=== PATIENT | male | born 1965 | race Caucasian/White ===

== ENCOUNTER → 2017-01-15 | Outpatient (CLI) | payer OTHER ==
[2017-01-15 07:22] LABS: BLOOD UREA NITROGEN 20 mg/dL (7-22); BUN/CREATININE RATIO 22.22 (6-20); CALCIUM 9.2 mg/dL (8.7-10.7); CHOL/HDL RATIO 4.16 RATIO (0-4.0); EST GLOMERULAR FILTRATION > 60 (>60 ml/min/1.73m(2)); HDL CHOLESTEROL 31 mg/dL (40-150); HEMOGLOBIN A1C 6.75 % (4.2-6.0); SERUM ALBUMIN 4.3 g/dL (3.5-4.8); SERUM CHOLESTEROL 129 mg/dL (120-200)
[2017-01-15 07:28] LABS: CREATININE, URINE 34.3 MG/DL (15-500)
== END ==
LOC: LAB 06:55
PROVIDERS: ATTEND Internal Medicine
DX: E11.9 Type 2 diabetes mellitus without complications (principal); E78.5 Hyperlipidemia, unspecified; I10 Essential (primary) hypertension; R53.83 Other fatigue; I25.10 Atherosclerotic heart disease of native coronary artery without angina pectoris
CPT/HCPCS: 36415; 80053; 80061; 82043; 82550; 83036